=== PATIENT | male | born 1955 | race African-American/Black ===

== ENCOUNTER 2018-09-28 16:49 | Emergency (ER) | payer MEDICAID ==
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
--- NOTE | 2018-09-28 17:55 | CT ---
CT LUMBAR SPINE, NONCONTRAST: CLINICAL HISTORY: Pain COMPARISON: None FINDINGS: Fracture: None Alignment: Preserved Disc Spaces, Endplates, Facet Joints: Mild multilevel degenerative change. There is degenerative gas density of the left L5-S1 facet and left subarticular/foraminal region. Incidental findings: Patchy opacity, left lung base. Vascular calcification. IMPRESSION: No acute lumbar spine fracture.
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
== END 2018-09-28 18:41 | disposition home or self-care (01) ==
LOC: ERS 16:49 → EDBD 16:49 → ERS 18:41
DX: S16.1XXA Strain of muscle, fascia and tendon at neck level, initial encounter (principal); M54.5 Low back pain; E11.40 Type 2 diabetes mellitus with diabetic neuropathy, unspecified; Z79.84 Long term (current) use of oral hypoglycemic drugs; F17.210 Nicotine dependence, cigarettes, uncomplicated; Z79.899 Other long term (current) drug therapy; V49.40XA Driver injured in collision with unspecified motor vehicles in traffic accident, initial encounter
CPT/HCPCS: 71045; 72125; 72131